=== PATIENT | female | born 1960 | race Caucasian/White ===

== ENCOUNTER 2023-03-13 09:52 | Day surgery (SDC) | payer OTHER ==
[2023-03-09 13:52] LABS: Absolute Lymphocytes (CBC) 3.3 K/uL (0.7-4.9); Hematocrit 39.5 % (36.0-45.0); Lymphocytes % 41.9 % (15.3-44.8); MCV 86.4 fL (80-100); MPV 8.2 fL (7.6-11.3); Platelets 312 thou/uL (152-406); RBC Red Blood Cell Count 4.57 M/uL (3.86-4.86)
[2023-03-09 13:55] LABS: Protime INR 1.06
--- NOTE | 2023-03-09 14:25 | RAD REPORT ---
EXAM DESCRIPTION: Libertad Wallace (2 Views)03/09/2023 1:47 pm CLINICAL HISTORY: Preop for cardiac catheterization. Hypertension COMPARISON: None FINDINGS: The lungs appear clear of acute infiltrate. The heart is normal size IMPRESSION: No acute abnormalities displayed
--- NOTE | 2023-03-12 17:12 | EKG ---
Test Date: 2023-03-09 Test Time: 13:32:37 [employer] Service Technician: MAMTA MEASUREMENT RESULTS: Intervals: Rate: 64 DC: 162 QRSD: 88 QT: 394 QTc: 406 [place]: P: 57 DC: 162 QRS: 52 T: 24 INTERPRETIVE STATEMENTS: Normal sinus rhythm Normal ECG No previous ECG available for comparison Electronically Signed On 03-12-23 17:06:06 CDT by Camacho Servin
[2023-03-13] MEDS ORDERED: NA CHLORIDE 0.9% 500 ML ONE (10:14)
[2023-03-13 10:41] VITALS: O2SAT 100
[2023-03-13] MEDS ORDERED: FENTANYL CITR 100 MCG/2 ML ONE (11:20)
[2023-03-13] MEDS ORDERED: LIDOCAINE 1% 20 ML MDV ONE (11:20)
[2023-03-13] MEDS ORDERED: HEPA 1000U/500MLS 2,000 UNIT/1,000 ML BAG IV ONE (11:20)
[2023-03-13] MEDS ORDERED: ATROPINE SULF 1 MG/10 ML SYR IV ONE (11:21)
[2023-03-13] MEDS ORDERED: ASPIRIN 325 MG TAB ONE (11:21)
[2023-03-13] MEDS ORDERED: HEPARIN 10,000 UNIT/10 ML VIAL IV ONE (11:21)
[2023-03-13] MEDS ORDERED: VERAPAMIL HCL 10 MG/4 ML VIAL IV ONE (11:21)
[2023-03-13] MEDS ORDERED: TICAGRELOR 90 MG TABLET PO ONE (11:21)
[2023-03-13] MEDS ORDERED: MIDAZOLAM HCL 2 MG/2 ML INJ ONE (11:21)
[2023-03-13] MEDS ORDERED: HEPARIN 5000 UNIT/ML 1 ML VIAL ONE (11:21)
[2023-03-13] MEDS ORDERED: CLOPIDOGREL 75 MG TABLET ONE (11:21)
[2023-03-13 13:47] VITALS: BP 132/68
--- NOTE | 2023-03-13 14:32 | OP ---
Date of Procedure: 03/13/2023 Surgeon: JOHN MAZARIEGOS Procedures Performed: 1.Selective coronary angiogram. 2.Left heart catheterization. Indication: Chest pain with grossly abnormal stress test. Access: Right femoral artery 6-Angolan closed with 6-Angolan Angio-Seal. Complications: None. Bleeding: Less than 20 mL. Description Of Procedure: After risks, benefits, alternatives were explained, patient agreed to proc edure and signed informal consent. Patient was brought into the cardiac catheterization laboratory, prepped and draped in usual sterile fashion. Then, I accessed right femoral artery using micropunctu re kit, fluoroscopy with ultrasound guidance, placed 6-Angolan [place] sheath and took 6-Angolan JL3 c atheter into the aortic root, engaged left main, took standard views and then exchanged for 6-Angolan JR4 catheter, engaged the RCA, took standard views. The catheter was pushed over the wire into the L V, measured the LVEDP and pullback did not record any gradient. Then I removed the catheter and then the sheath and then 6-Angolan Angio-Seal was used for closure with good hemostasis. Findings: 1.Left main; it is normal. 2.LAD; moderate size and normal. Normal diagonal branches. 3.Left circumflex; moderate size and normal. Normal OM branches. 4.RCA; moderate size and has a 20% stenosis diffusely in the mid segment, otherwise it is normal. I t is a codominant circulation. 5.Elevated LVEDP at 19 mmHg. Conclusion: 1.No significant coronary artery disease. 2.Mildly elevated LVEDP. Recommendation: Medical management. /KETAN Voice ID: [id number] Report ID: [id number]
== END 2023-03-13 14:14 | disposition home or self-care (01) ==
LOC: CCL 09:52
PROVIDERS: ATTEND Internal Medicine
DX: I25.10 Atherosclerotic heart disease of native coronary artery without angina pectoris (principal); I10 Essential (primary) hypertension; E78.2 Mixed hyperlipidemia; Z87.891 Personal history of nicotine dependence; Z79.899 Other long term (current) drug therapy
CPT/HCPCS: 93005; 85025; 80048; 36415; 83721; 85610; 82947; 85730; 71046; 93458; 76937; C1893; Q9966; C1760; G0269; J1644; J2001; J2250; J3010; J7040; J0461